=== PATIENT | female | born 1945 | race Caucasian/White ===

== ENCOUNTER 2017-01-01 18:18 | Inpatient (IN) | payer OTHER, MEDICARE ==
[~2017-01-01] VITALS: Ht 160 cm; Wt 121.6 kg
[~2017-01-01 18:18] MED LIST: ASPI81TA2 PO; CARV3.1246 PO; CEPH-568 PO; DILT60TA3 PO; DIVA250T PO; GABA-529 PO; GLU500 PO; OXYB5TAB11 PO; SIMV20TA2 PO
[2017-01-01 20:01] VITALS: BP_SYST 138
[2017-01-01] MEDS: MORPHINE SULFATE 30 MG TABLET.SA PO SCH (23:30)
[2017-01-02] VITALS (8 sets, daily range): BP systolic 120–153
[2017-01-02] MEDS: MORPHINE SULFATE 30 MG Immediate Release TABLET PO PRN ×2 (00:22→20:14)
[2017-01-02] MEDS ORDERED: GENTAMICIN SULFATE 200 MG in NS 100 ML IV ONE (00:30)
[2017-01-02] MEDS ORDERED: VANCOMYCIN HCL 1,500 MG in NS 250 ML IV ONE (00:30)
[2017-01-02] MEDS: MORPHINE SULFATE 30 MG TABLET.SA PO SCH ×3 (05:33→21:52)
[2017-01-02] MEDS ORDERED: GENTAMICIN 100 mg/50 mL NS 100 ML IV ONE (05:58)
[2017-01-02] MEDS ORDERED: VANCOMYCIN HCL 500 MG/VIAL IV ONE (05:59)
[2017-01-02] MEDS ORDERED: VANCOMYCIN HCL 1000 MG/VIAL IV ONE (05:59)
[2017-01-02 06:52] LABS: BASOPHILS % (AUTO) 0.2 % (0.0-2.0); EOSINOPHILS # (AUTO) 0.1 K/uL (0.0-0.4); EOSINOPHILS % (AUTO) 0.6 % (0.0-4.0); HEMATOCRIT 35.8 % (36-48); HEMOGLOBIN 11.5 g/dL (12.0-16.0); LYMPHOCYTES # (AUTO) 2.6 K/uL (1.0-5.5); LYMPHOCYTES % (AUTO) 21.6 % (20.5-51.5); MEAN CORPUSCULAR HEMOGLOBIN 26 pg (27-31); MEAN CORPUSCULAR HGB CONC 32 % (32-36); MEAN CORPUSCULAR VOLUME 81 fL (79.0-98.0); MONOCYTES # (AUTO) 0.7 K/uL (0.0-1.0); MONOCYTES % (AUTO) 5.6 % (1.7-9.3); NEUTROPHILS # (AUTO) 8.7 K/uL (1.8-7.7); PLATELET COUNT (AUTO) 389 K/uL (130-430); RED BLOOD CELL COUNT(AUTO) 4.45 MIL/uL (4.2-6.2); RED CELL DISTRIBUTION WIDTH 15.4 % (9.0-15.0); WHITE BLOOD COUNT (AUTO) 12.1 K/uL (4.8-10.8)
[2017-01-02 07:13] LABS: CALCIUM 9.8 mg/dL (8.4-11.0); CREATININE 0.84 mg/dL (0.55-1.30); POTASSIUM 4.2 mmol/L (3.5-5.1)
[2017-01-02 07:34] LABS: ALBUMIN 3.1 g/dL (3.4-4.8); TOTAL BILIRUBIN 0.3 mg/dL (0.0-1.0)
[2017-01-02] MEDS ORDERED: FLU VACC QS 2017-18(36MOS+)/PF 0.5 ML/SYR SYRINGE I.M. PRN (07:45)
[2017-01-02] MEDS: metFORMIN HCL 500 MG TABLET PO SCH ×2 (08:00→17:56)
[2017-01-02] MEDS: SOTALOL (AF) 80 MG TABLET PO SCH (09:40)
[2017-01-02] MEDS: CITALOPRAM HYDROBROMIDE 20 MG TABLET PO SCH (09:40)
[2017-01-02] MEDS: LORazepam 1 MG TABLET PO SCH (09:41)
[2017-01-02] MEDS: DILTIAZEM HCL 120 MG CAP.SR.24H PO SCH (09:41)
[2017-01-02] MEDS: busPIRone HCL 5 MG TABLET PO SCH ×2 (09:42→21:50)
[2017-01-02] MEDS: PANTOPRAZOLE SODIUM 40 MG TAB PO SCH (09:42)
[2017-01-02] MEDS: FUROSEMIDE 20 MG TABLET PO SCH (09:43)
[2017-01-02] MEDS: ATORVASTATIN 10 MG TABLET PO SCH (09:43)
[2017-01-02] MEDS: GABAPENTIN 100 MG CAPSULE PO SCH ×2 (09:43→21:51)
[2017-01-02] MEDS: ISOSORBIDE MONONITRATE 30 MG TAB.ER.24H PO SCH (09:44)
[2017-01-02] MEDS ORDERED: CEFEPIME 1 GM/DEXT-ISO-OSM 50 ML IV SCH (13:00)
[2017-01-02] MEDS: CEFEPIME 1 GM in D5W 50 ML IV SCH (21:49)
[2017-01-02] MEDS: LORazepam 1 MG TABLET PO PRN (23:40)
[2017-01-03] MEDS: MORPHINE SULFATE 30 MG Immediate Release TABLET PO PRN ×3 (02:39→17:46)
[2017-01-03 02:56] VITALS: BP_SYST 120
[2017-01-03] MEDS: MORPHINE SULFATE 30 MG TABLET.SA PO SCH ×3 (05:38→21:46)
[2017-01-03 06:47] LABS: BASOPHILS % (AUTO) 0.4 % (0.0-2.0); EOSINOPHILS # (AUTO) 0.1 K/uL (0.0-0.4); EOSINOPHILS % (AUTO) 1.1 % (0.0-4.0); HEMATOCRIT 33.1 % (36-48); HEMOGLOBIN 10.9 g/dL (12.0-16.0); LYMPHOCYTES # (AUTO) 3.2 K/uL (1.0-5.5); LYMPHOCYTES % (AUTO) 30.4 % (20.5-51.5); MEAN CORPUSCULAR HEMOGLOBIN 27 pg (27-31); MEAN CORPUSCULAR HGB CONC 33 % (32-36); MEAN CORPUSCULAR VOLUME 81 fL (79.0-98.0); MONOCYTES # (AUTO) 0.7 K/uL (0.0-1.0); MONOCYTES % (AUTO) 6.8 % (1.7-9.3); NEUTROPHILS # (AUTO) 6.5 K/uL (1.8-7.7); NEUTROPHILS % (AUTO) 61.3 % (40.0-70.0); PLATELET COUNT (AUTO) 332 K/uL (130-430); RED BLOOD CELL COUNT(AUTO) 4.08 MIL/uL (4.2-6.2); WHITE BLOOD COUNT (AUTO) 10.5 K/uL (4.8-10.8)
[2017-01-03 06:53] LABS: CALCIUM 9.4 mg/dL (8.4-11.0); CREATININE 0.85 mg/dL (0.55-1.30)
[2017-01-03 07:01] LABS: ALBUMIN 2.8 g/dL (3.4-4.8); TOTAL BILIRUBIN 0.2 mg/dL (0.0-1.0)
[2017-01-03 08:00] VITALS: BP_SYST 143
[2017-01-03] MEDS: CEFEPIME 1 GM in D5W 50 ML IV SCH ×2 (08:12→21:44)
[2017-01-03] MEDS: SOTALOL (AF) 80 MG TABLET PO SCH (08:13)
[2017-01-03] MEDS: CITALOPRAM HYDROBROMIDE 20 MG TABLET PO SCH (08:14)
[2017-01-03] MEDS: DILTIAZEM HCL 120 MG CAP.SR.24H PO SCH (08:14)
[2017-01-03] MEDS: ATORVASTATIN 10 MG TABLET PO SCH (08:14)
[2017-01-03] MEDS: metFORMIN HCL 500 MG TABLET PO SCH ×2 (08:14→17:42)
[2017-01-03] MEDS: LORazepam 1 MG TABLET PO SCH (08:15)
[2017-01-03] MEDS: GABAPENTIN 100 MG CAPSULE PO SCH ×2 (08:15→21:45)
[2017-01-03] MEDS: ISOSORBIDE MONONITRATE 30 MG TAB.ER.24H PO SCH (08:15)
[2017-01-03] MEDS: FUROSEMIDE 20 MG TABLET PO SCH (08:16)
[2017-01-03] MEDS: busPIRone HCL 5 MG TABLET PO SCH ×2 (08:16→21:45)
[2017-01-03] MEDS: PANTOPRAZOLE SODIUM 40 MG TAB PO SCH (08:16)
[2017-01-03] MEDS: RIVAROXABAN 10 MG TABLET PO SCH (08:21)
[2017-01-03 13:06] VITALS: BP_SYST 128
[2017-01-03 16:11] VITALS: BP_SYST 124
[2017-01-03] MEDS: GENTAMICIN SULFATE 200 MG in NS 100 ML IV SCH (17:43)
[2017-01-03] MEDS ORDERED: IMAT100T9 PO (18:06)
[2017-01-03] MEDS: LORazepam 1 MG TABLET PO PRN (18:44)
[2017-01-03 20:34] VITALS: BP_SYST 123
[2017-01-04] VITALS (9 sets, daily range): BP systolic 104–180
[2017-01-04] MEDS ORDERED: INSULIN REGULAR, HUMAN 100 UNITS/ML, 10 ML VIAL (novoLIN R) SUBCUT PRN (01:30)
[2017-01-04] MEDS ORDERED: LORazepam 2 MG/ML VIAL IVP ONE (01:30)
[2017-01-04] MEDS: D5/0.45 NS 1,000 ML IV SCH (02:47)
[2017-01-04] MEDS: GENTAMICIN SULFATE 200 MG in NS 100 ML IV SCH ×2 (04:48→15:55)
[2017-01-04] MEDS: MORPHINE SULFATE 30 MG TABLET.SA PO SCH ×3 (06:19→21:43)
[2017-01-04] MEDS: CEFEPIME 1 GM in D5W 50 ML IV SCH ×2 (08:37→21:42)
[2017-01-04] MEDS: ATORVASTATIN 10 MG TABLET PO SCH (08:38)
[2017-01-04] MEDS: LORazepam 1 MG TABLET PO SCH (08:38)
[2017-01-04] MEDS: CITALOPRAM HYDROBROMIDE 20 MG TABLET PO SCH (08:38)
[2017-01-04] MEDS: ISOSORBIDE MONONITRATE 30 MG TAB.ER.24H PO SCH (08:38)
[2017-01-04] MEDS: GABAPENTIN 100 MG CAPSULE PO SCH ×2 (08:38→21:42)
[2017-01-04] MEDS: SOTALOL (AF) 80 MG TABLET PO SCH (08:38)
[2017-01-04] MEDS: metFORMIN HCL 500 MG TABLET PO SCH ×2 (08:39→17:42)
[2017-01-04] MEDS: FUROSEMIDE 20 MG TABLET PO SCH (08:39)
[2017-01-04] MEDS: busPIRone HCL 5 MG TABLET PO SCH ×2 (08:39→21:43)
[2017-01-04] MEDS: PANTOPRAZOLE SODIUM 40 MG TAB PO SCH (08:39)
[2017-01-04] MEDS: MORPHINE SULFATE 30 MG Immediate Release TABLET PO PRN ×2 (08:42→14:24)
[2017-01-04] MEDS: DILTIAZEM HCL 120 MG CAP.SR.24H PO SCH (08:43)
[2017-01-04] MEDS: RIVAROXABAN 10 MG TABLET PO SCH (08:44)
[2017-01-04 08:45] LABS: INR 1.1 (0.8-1.2); PROTHROMBIN TIME 12.4 SECS (9.5-12.5)
[2017-01-04 09:45] LABS: BASOPHILS % (AUTO) 0.3 % (0.0-2.0); EOSINOPHILS # (AUTO) 0.1 K/uL (0.0-0.4); EOSINOPHILS % (AUTO) 1.2 % (0.0-4.0); HEMATOCRIT 34.5 % (36-48); HEMOGLOBIN 11.1 g/dL (12.0-16.0); LYMPHOCYTES # (AUTO) 3.7 K/uL (1.0-5.5); LYMPHOCYTES % (AUTO) 32.4 % (20.5-51.5); MEAN CORPUSCULAR HEMOGLOBIN 26 pg (27-31); MEAN CORPUSCULAR HGB CONC 32 % (32-36); MEAN CORPUSCULAR VOLUME 81 fL (79.0-98.0); MONOCYTES # (AUTO) 0.6 K/uL (0.0-1.0); MONOCYTES % (AUTO) 5.2 % (1.7-9.3); NEUTROPHILS % (AUTO) 60.9 % (40.0-70.0); PLATELET COUNT (AUTO) 326 K/uL (130-430); RED BLOOD CELL COUNT(AUTO) 4.27 MIL/uL (4.2-6.2); RED CELL DISTRIBUTION WIDTH 15.2 % (9.0-15.0); WHITE BLOOD COUNT (AUTO) 11.4 K/uL (4.8-10.8)
[2017-01-04] MEDS: LORazepam 1 MG TABLET PO PRN (18:38)
[2017-01-04] MEDS: cloNIDine HCL 0.1 MG TABLET PO SCH (21:42)
[2017-01-05] VITALS (11 sets, daily range): BP systolic 102–145
[2017-01-05] MEDS: GENTAMICIN SULFATE 200 MG in NS 100 ML IV SCH ×2 (04:29→16:31)
[2017-01-05] MEDS: MORPHINE SULFATE 30 MG TABLET.SA PO SCH ×3 (05:55→23:20)
[2017-01-05 06:53] LABS: BASOPHILS % (AUTO) 0.3 % (0.0-2.0); EOSINOPHILS # (AUTO) 0.1 K/uL (0.0-0.4); EOSINOPHILS % (AUTO) 1.4 % (0.0-4.0); HEMATOCRIT 34.6 % (36-48); HEMOGLOBIN 11.4 g/dL (12.0-16.0); LYMPHOCYTES # (AUTO) 3.3 K/uL (1.0-5.5); LYMPHOCYTES % (AUTO) 31.8 % (20.5-51.5); MEAN CORPUSCULAR HEMOGLOBIN 27 pg (27-31); MEAN CORPUSCULAR HGB CONC 33 % (32-36); MEAN CORPUSCULAR VOLUME 81 fL (79.0-98.0); MONOCYTES # (AUTO) 0.6 K/uL (0.0-1.0); MONOCYTES % (AUTO) 5.4 % (1.7-9.3); NEUTROPHILS # (AUTO) 6.4 K/uL (1.8-7.7); NEUTROPHILS % (AUTO) 61.1 % (40.0-70.0); PLATELET COUNT (AUTO) 347 K/uL (130-430); RED BLOOD CELL COUNT(AUTO) 4.29 MIL/uL (4.2-6.2); RED CELL DISTRIBUTION WIDTH 15.2 % (9.0-15.0); WHITE BLOOD COUNT (AUTO) 10.4 K/uL (4.8-10.8)
[2017-01-05 07:13] LABS: ALBUMIN 2.8 g/dL (3.4-4.8); CALCIUM 9.2 mg/dL (8.4-11.0); CREATININE 0.87 mg/dL (0.55-1.30); POTASSIUM 4.5 mmol/L (3.5-5.1); TOTAL BILIRUBIN 0.5 mg/dL (0.0-1.0)
[2017-01-05] MEDS: MORPHINE SULFATE 30 MG Immediate Release TABLET PO PRN (07:47)
[2017-01-05] MEDS: metFORMIN HCL 500 MG TABLET PO SCH ×2 (08:00→17:12)
[2017-01-05] MEDS: LORazepam 1 MG TABLET PO SCH (08:27)
[2017-01-05] MEDS: RIVAROXABAN 10 MG TABLET PO SCH (08:27)
[2017-01-05] MEDS: cloNIDine HCL 0.1 MG TABLET PO SCH ×2 (08:28→23:15)
[2017-01-05] MEDS: CITALOPRAM HYDROBROMIDE 20 MG TABLET PO SCH (08:28)
[2017-01-05] MEDS: ATORVASTATIN 10 MG TABLET PO SCH (08:28)
[2017-01-05] MEDS: DILTIAZEM HCL 120 MG CAP.SR.24H PO SCH (08:29)
[2017-01-05] MEDS: FUROSEMIDE 20 MG TABLET PO SCH (08:29)
[2017-01-05] MEDS: GABAPENTIN 100 MG CAPSULE PO SCH ×2 (08:30→23:18)
[2017-01-05] MEDS: ISOSORBIDE MONONITRATE 30 MG TAB.ER.24H PO SCH (08:30)
[2017-01-05] MEDS: PANTOPRAZOLE SODIUM 40 MG TAB PO SCH (08:30)
[2017-01-05] MEDS: busPIRone HCL 5 MG TABLET PO SCH ×2 (08:30→23:18)
[2017-01-05] MEDS: D5/0.45 NS 1,000 ML IV SCH (08:33)
[2017-01-05] MEDS: CEFEPIME 1 GM in D5W 50 ML IV SCH ×2 (08:36→22:59)
[2017-01-05] MEDS: SOTALOL (AF) 80 MG TABLET PO SCH (10:00)
[2017-01-05 10:55] LABS: BILIRUBIN,URINE NEGATIVE (NEGATIVE); BLOOD, URINE NEGATIVE (NEGATIVE); CLARITY/URINE CLEAR (CLEAR); COLOR,URINE YELLOW (YELLOW); GLUCOSE,URINE NEGATIVE (NEGATIVE); KETONES,URINE NEGATIVE (NEGATIVE); LEUKOCYTE ESTERASE ,URINE NEGATIVE (NEGATIVE); NITRITE, URINE NEGATIVE (NEGATIVE); PROTEIN URINE NEGATIVE (NEGATIVE); UROBILINOGEN,URINE 0.2 (0.2-1.0)
[2017-01-05] MEDS: LORazepam 1 MG TABLET PO PRN (13:34)
[2017-01-05] MEDS ORDERED: NS 1000 ML BAG IV ONE (16:01)
[2017-01-05] MEDS ORDERED: MIDAZOLAM HCL 5 MG/ML VIAL (VERSED) IV ONE (16:01)
[2017-01-05] MEDS ORDERED: GLYCOPYRROLATE 0.2 MG/ML VIAL IJ ONE (16:01)
[2017-01-05] MEDS ORDERED: NS IRRIG SOLN 1000 ML IR ONE (16:01)
[2017-01-05] MEDS ORDERED: PROPOFOL 200MG/ 20ML VIAL (DIPRIVAN) IV ONE (16:01)
[2017-01-05] MEDS ORDERED: KETOROLAC TROMETHAMINE 30 MG VIAL IVP ONE (16:01)
[2017-01-05] MEDS ORDERED: KETAMINE HCL 500 MG/10 ML VIAL IVP ONE (16:01)
[2017-01-05] MEDS ORDERED: SEVOFLURANE 15 MIN GAS INH ONE (16:01)
[2017-01-05] MEDS ORDERED: MORPHINE 4 MG/ML INJ. SYRINGE IVP PRN (16:15)
[2017-01-05] MEDS ORDERED: KETAMINE HCL 500 MG/10 ML VIAL ONE (20:00)
[2017-01-05] MEDS ORDERED: LR 1,000 ML IV ONE (21:01)
[2017-01-05] MEDS ORDERED: POLYMYXIN 500,000/BACIT.10,000 UNITS in NS IRR 1 L IR ONE (21:03)
[2017-01-05] MEDS ORDERED: NALOXONE HCL 0.4 MG/ML AMP (NARCAN) IVP PRN (21:15)
[2017-01-05] MEDS ORDERED: ePHEDrine sulfate 50 MG/ML VIAL IVP PRN (21:15)
[2017-01-05] MEDS ORDERED: ONDANSETRON HCL 4 MG/2 ML VIAL IVP PRN ×2 (21:15)
[2017-01-05] MEDS ORDERED: NALBUPHINE HCL 10 MG/ML AMP IVP PRN (21:15)
[2017-01-05] MEDS ORDERED: fentaNYL CITRATE/PF 100 MCG/2 ML AMP IVP PRN (21:15)
[2017-01-05] MEDS ORDERED: DIPHENHYDRAMINE INJ 50 MG/ML VIAL IVP PRN (21:15)
[2017-01-05] MEDS ORDERED: HYDROmorphone 1 MG INJ. 1 MG/ML AMPUL IVP PRN ×2 (21:30)
[2017-01-05] MEDS ORDERED: fentaNYL CITRATE/PF 100 MCG/2 ML AMP ONE (21:37)
[2017-01-05] MEDS: HYDROmorphone 2 MG/ML VIAL IVP PRN (22:47)
[2017-01-05] MEDS: NACL 0.9% 1,000 ML IV SCH (22:53)
[2017-01-06] MEDS: LORazepam 1 MG TABLET PO PRN (01:03)
[2017-01-06 01:10] VITALS: BP_SYST 145
[2017-01-06] MEDS: METHOCARBAMOL 500 MG TABLET PO PRN ×2 (01:17→12:03)
[2017-01-06 03:28] VITALS: BP_SYST 122
[2017-01-06] MEDS: NACL 0.9% 1,000 ML IV SCH (04:48)
[2017-01-06] MEDS: GENTAMICIN SULFATE 200 MG in NS 100 ML IV SCH (04:49)
[2017-01-06] MEDS: HYDROmorphone 2 MG/ML VIAL IVP PRN ×2 (04:51→08:25)
[2017-01-06] MEDS: MORPHINE SULFATE 30 MG TABLET.SA PO SCH ×2 (06:40→13:11)
[2017-01-06 06:59] LABS: BASOPHILS % (AUTO) 0.2 % (0.0-2.0); EOSINOPHILS # (AUTO) 0.2 K/uL (0.0-0.4); EOSINOPHILS % (AUTO) 1.3 % (0.0-4.0); HEMATOCRIT 35.2 % (36-48); HEMOGLOBIN 11.5 g/dL (12.0-16.0); LYMPHOCYTES # (AUTO) 3.4 K/uL (1.0-5.5); LYMPHOCYTES % (AUTO) 24.9 % (20.5-51.5); MEAN CORPUSCULAR HEMOGLOBIN 27 pg (27-31); MEAN CORPUSCULAR HGB CONC 33 % (32-36); MEAN CORPUSCULAR VOLUME 81 fL (79.0-98.0); MONOCYTES # (AUTO) 0.7 K/uL (0.0-1.0); MONOCYTES % (AUTO) 4.9 % (1.7-9.3); NEUTROPHILS # (AUTO) 9.5 K/uL (1.8-7.7); NEUTROPHILS % (AUTO) 68.7 % (40.0-70.0); PLATELET COUNT (AUTO) 342 K/uL (130-430); RED BLOOD CELL COUNT(AUTO) 4.34 MIL/uL (4.2-6.2); RED CELL DISTRIBUTION WIDTH 15.2 % (9.0-15.0); WHITE BLOOD COUNT (AUTO) 13.8 K/uL (4.8-10.8)
[2017-01-06 07:37] LABS: CREATININE 0.82 mg/dL (0.55-1.30); POTASSIUM 4.1 mmol/L (3.5-5.1)
[2017-01-06 08:20] VITALS: BP_SYST 144
[2017-01-06] MEDS: CEFEPIME 1 GM in D5W 50 ML IV SCH (08:20)
[2017-01-06] MEDS: metFORMIN HCL 500 MG TABLET PO SCH (08:22)
[2017-01-06] MEDS: CITALOPRAM HYDROBROMIDE 20 MG TABLET PO SCH (08:23)
[2017-01-06] MEDS: FUROSEMIDE 20 MG TABLET PO SCH (08:23)
[2017-01-06] MEDS: GABAPENTIN 100 MG CAPSULE PO SCH (08:23)
[2017-01-06] MEDS: PANTOPRAZOLE SODIUM 40 MG TAB PO SCH (08:23)
[2017-01-06] MEDS: DILTIAZEM HCL 120 MG CAP.SR.24H PO SCH (08:23)
[2017-01-06] MEDS: busPIRone HCL 5 MG TABLET PO SCH (08:23)
[2017-01-06] MEDS: cloNIDine HCL 0.1 MG TABLET PO SCH (08:24)
[2017-01-06] MEDS: LORazepam 1 MG TABLET PO SCH (08:24)
[2017-01-06] MEDS: ISOSORBIDE MONONITRATE 30 MG TAB.ER.24H PO SCH (08:24)
[2017-01-06] MEDS: RIVAROXABAN 10 MG TABLET PO SCH (08:25)
[2017-01-06] MEDS: ATORVASTATIN 10 MG TABLET PO SCH (08:25)
[2017-01-06] MEDS: SOTALOL (AF) 80 MG TABLET PO SCH (08:27)
[2017-01-06] MEDS ORDERED: HYDROmorphone 2 MG TAB PO PRN (09:45)
[2017-01-06] MEDS ORDERED: VANCOMYCIN HCL 1,250 MG in NS 250 ML IV SCH (11:00)
[2017-01-06 12:20] VITALS: BP_SYST 121
[2017-01-06 14:56] VITALS: BP_SYST 132
== END 2017-01-06 16:02 | DRG 29 ==
LOC: SMU 18:36
PROVIDERS: ADMIT Internal Medicine Hospice and Palliative Medicine; ATTEND Internal Medicine Hospice and Palliative Medicine
PROC: 00PU03Z Removal of Infusion Device from Spinal Canal, Open Approach (ICD-10-PCS; 2017-01-05)
PROC: 0WPF0YZ Removal of Other Device from Abdominal Wall, Open Approach (ICD-10-PCS; principal; 2017-01-05 20:00)
DX: T85.738A Infection and inflammatory reaction due to other nervous system device, implant or graft, initial encounter (principal); L03.312 Cellulitis of back [any part except buttock and flank]; L89.159 Pressure ulcer of sacral region, unspecified stage; Z68.42 Body mass index [BMI] 45.0-49.9, adult; I11.0 Hypertensive heart disease with heart failure; I50.9 Heart failure, unspecified; E11.9 Type 2 diabetes mellitus without complications; E66.01 Morbid (severe) obesity due to excess calories; E78.5 Hyperlipidemia, unspecified; G47.33 Obstructive sleep apnea (adult) (pediatric); K21.9 Gastro-esophageal reflux disease without esophagitis; I25.10 Atherosclerotic heart disease of native coronary artery without angina pectoris; F41.9 Anxiety disorder, unspecified; M48.06 Spinal stenosis, lumbar region; G89.4 Chronic pain syndrome; J45.909 Unspecified asthma, uncomplicated; Y83.1 Surgical operation with implant of artificial internal device as the cause of abnormal reaction of the patient, or of later complication, without mention of misadventure at the time of the procedure; F32.9 Major depressive disorder, single episode, unspecified; M54.9 Dorsalgia, unspecified; Z99.3 Dependence on wheelchair; Z79.82 Long term (current) use of aspirin; Z79.899 Other long term (current) drug therapy; Y92.89 Other specified places as the place of occurrence of the external cause
CPT/HCPCS: 36415; 71010; 80048; 80053; 80170-TC; 80202-TC; 81003; 82962; 85025; 85610-TC; 85730-TC; 87040-TC; 87070-TC; 87075-TC; 87081; 88300; 88305; 93005; J0692; J1170; J1580; J1815; J1885; J2060; J2250; J2270; J2274; J2704; J3010; J3370; J3490; J7030; J7050; J7060; Q2037